=== PATIENT | female | born 1955 | race Caucasian/White ===

== ENCOUNTER → 2016-12-21 | Outpatient (CLI) | payer OTHER ==
[~2016-12-21] MED LIST: ALBUTEROL17 GM INH; AMITRIPTYLINE H50 MG PO; ATORVASTATIN CA10 MG PO; BYSTOLIC5 MG PO; CARAFATE1 G PO; CELEXA10 MG PO; GABAPENTIN400 M2 PO; LISINOPRIL10 MG PO; LORTAB 7.51 TAB PO; METOPROLOL SUCC50 MG PO; NAPROXEN PO; QUDEXY XR100 MG PO; SYMBICORT 16010.2 GM IH
--- NOTE | ~2016-12-21 | CT2 ---
[facility]. [facility] A Service of [facility] RADIOLOGY TEXT RESULTS PATIENT: SALLY MCKINLEY LOCATION: [facility] : 51 UNIT #: [id number] AGE: [address]: Jane Terry MD SEX: F ORDER DR: [id number] [address] [id number] O MR#: [id number] Acc #: [id number] NAME: SALLY MCKINLEY : 1955 SEX: F STUDY DATE/TIME: 12/21/2016 15:16 UNIT: [facility] ROOM: STUDY DESCRIPTION: CT Abd and Pelv W Cont Attending Physician: Jane Terry M.D. Referring Physician: Jane Terry M.D. Ordering Physician: Jane Terry M.D. Primary Care Physician: Jane Terry M.D. MEDICAL IMAGING REPORT This report is preliminary unless electronic signature is present. EXAM CT abdomen and pelvis with contrast. HISTORY Left lower quadrant pain. Numbness in left leg. Symptoms for 3 months. COMPARISON STUDIES 09/19/2014 TECHNIQUE The patient was given 100 mL of Isovue-370 and axial 5 mm images were obtained through the abdomen and pelvis. Oral contrast was also administered. This CT exam was performed with one or more of the following radiation dose reduction techniques: automatic exposure control, adjustment of mA and/or kV according to patient size, and iterative reconstruction. FINDINGS The gallbladder has been removed. The lung bases are clear. The liver, spleen, pancreas, adrenal glands and kidneys are normal. The aorta is normal in size. The bowel is normal. There are postoperative changes in the sigmoid colon. The bladder is normal. The uterus has been removed. The bones show degenerative changes. IMPRESSION 1. Status post hysterectomy and cholecystectomy. No adnexal masses are identified. 2. Postop changes sigmoid colon. 3. Scoliosis and degenerative change lumbar spine. [facility] A Service of [facility] RADIOLOGY TEXT RESULTS PATIENT: SALLY MCKINLEY LOCATION: [facility] : 51 UNIT #: [id number] AGE: [address]: Jane Terry MD SEX: F ORDER DR: Dictated by... Robbie Gurrola M.D. THIS IS AN ELECTRONICALLY VERIFIED REPORT Robbie Gurrola M.D. at 12/21/2016 4:22 PM YASMIN/teresita TD: 12/21/2016 16:17 JOB #: [id number] MEDICAL IMAGING REPORT Page 1 of 1
[2016-12-21 14:25] LABS: POC - CREATININE 0.87 mg/dL (0.44-1.03); POC - GFR >60.0 mL/min (>60)
== END | disposition home or self-care (01) ==
LOC: SCT 13:38
PROVIDERS: Family Medicine
DX: R10.9 Unspecified abdominal pain (principal); M47.816 Spondylosis without myelopathy or radiculopathy, lumbar region; M41.9 Scoliosis, unspecified; Z90.710 Acquired absence of both cervix and uterus; Z90.49 Acquired absence of other specified parts of digestive tract
CPT/HCPCS: 74177; 82565; Q9967